=== PATIENT | male | born 1990 | race Two or more races ===

== ENCOUNTER 2022-08-17 20:21 | Emergency (ER) | payer SELFPAY ==
[2022-08-17 20:55] VITALS: BP 129/76; PULSE 79; RESP 16; TEMP 37.2; O2SAT 98; BMI 34.9
--- NOTE | 2022-08-17 22:42 | ED.ALLEREA ---
HPI - Allergic Reaction General Chief complaint: Allergic Reaction Stated complaint: right hand and face allergic reaction Time Seen by Provider: 08/17/22 22:35 Source: patient Mode of arrival: ambulatory Limitations: no limitations History of Present Illness HPI narrative: Patient comes here for rash in the groin area and the both hands for last 1 week. Patient stays in [facility] and when he came home noticed a rash with burrows in both hands and some rash in the thigh area. Has more itching in the nighttime no history of scabies in the past no other rash Related Data Previous Rx's Medication Instructions Recorded permethrin 5 % topical cream 1 appl topical Q14D 2 doses #60 08/17/22 grams Allergies Allergy/AdvReac Type Severity Reaction Status Date / Time No Known Allergies Allergy Verified 08/17/22 20:55 Review of Systems Review of Systems: Yes all other systems are reviewed and are negative [facility] Social History Social History Advance Directives: No Advance Directives Information Provided: No Physical Exam ED Vital Signs: Vital Signs - 24 hr 08/17/22 20:55 08/17/22 23:07 Temperature 98.9 F Pulse Rate 79 87 Respiratory Rate 16 16 Blood Pressure 129/76 128/81 Pulse Oximetry 98 97 Oxygen Delivery Method Room Air Room Air BMI result Body Mass Index 34.9 Appearance: Alert. Oriented X3. No acute distress. CVS: Normal heart rate and rhythm. Pulses normal. Respiratory: No respiratory distress. Equal air entry bilateral, no wheezing/rales/rhonchi Abdomen: Soft and nontender. Skin: Skin warm and dry. Normal skin color. Normal skin turgor. Rash similar to scabies rash with burrows and tunnels between in webs of both hands Extremities: No lower extremity edema. No calf tenderness Neuro: Oriented X 3. MDM - Allergic Reaction MDM Narrative Medical decision making narrative: Patient has scabies uncomplicated prescribed permethrin advised to follow as outpatient Discharge Plan Discharge Clinical Impression: Scabies Patient Disposition: Home, Self-Care Instructions: Scabies (ED) Additional Instructions: Care and cautions as advised apply the permethrin lotion as prescribed Prescriptions: New permethrin 5 % cream 1 appl topical Q14D Qty: 60 0RF Rx Instructions: apply second treatment 14 days after first treatment if live lice remain Interventions: ED Discharge Assessment Last Done: 08/17/22 23:08 Discharge Date/Time: 08/17/22 23:09
[2022-08-17 23:07] VITALS: BP 128/81; PULSE 87; RESP 16; O2SAT 97
== END 2022-08-17 23:09 | disposition home or self-care (01) ==
PROVIDERS: Emergency Provider Internal Medicine
DX: B86 Scabies (principal)
CPT/HCPCS: 99283; 99284